=== PATIENT | female | born 1990 | race Caucasian/White ===

== ENCOUNTER 2016-08-06 13:09 | Emergency (ER) | payer OTHER ==
[~2016-08-06] VITALS: Ht 162.6 cm; Wt 112.0 kg
[2016-08-06 13:15] VITALS: Ht 162.6 cm; Wt 112.0 kg
[2016-08-06] MEDS ORDERED: ONDANSETRON (ODT) 4 MG TAB ODT STA (14:14)
--- NOTE | 2016-08-06 14:22 | ERD ---
ER Documentation Chief Complaint Date/Time DATE: 08/06/16 TIME: 14:21 Chief Complaint FEVER, CONGESTION AND DIARRHEA X 1 DAY HPI This is a 26-year-old female who presents to the emergency room for evaluation of fever, congestion and diarrhea for 1 days duration. 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 Patient did take Motrin prior to arrival. ROS All systems reviewed and are negative except as per history of present illness. Allergies Allergies: Coded Allergies: No Known Allergy (Unverified , 08/06/16) PMhx/Soc History of Surgery: No Anesthesia Reaction: No Hx Neurological Disorder: No Hx Respiratory Disorders: No Hx Cardiac Disorders: No Hx Psychiatric Problems: No Hx Miscellaneous Medical Probl: No Hx Alcohol Use: No Hx Substance Use: No Hx Tobacco Use: No Smoking Status: Never smoker Physical Exam Vitals Vital Signs Date Time Temp Pulse Resp B/P Pulse Ox O2 Delivery O2 Flow Rate FiO2 08/06/16 13:15 99.5 78 16 138/82 100 Physical Exam Const: No acute distress Head: Atraumatic Eyes: Normal Conjunctiva ENT: Normal External Ears, Nose and Mouth. Neck: Full range of motion..~ No meningismus. Resp: Clear to auscultation bilaterally Cardio: Regular rate and rhythm, no murmurs Abd: Soft, non tender, non distended. Normal bowel sounds Skin: No petechiae or rashes Back: No midline or flank tenderness Ext: No cyanosis, or edema Neur: Awake and alert Psych: Normal Mood and Affect Results 24 hrs Current Medications Medications (Trade) Dose Ordered Sig/Margarita Route PRN Reason Start Time Stop Time Status Last Admin Dose Admin Ondansetron HCl (Zofran Odt) 4 mg ONCE STAT ODT 08/06/16 14:14 08/06/16 14:15 DC Procedures/MDM This is a 26-year-old female presents to the emergency room for evaluation of nasal congestion and diarrhea for 1 days duration. The patient appeared well- hydrated on my examination. I did advise her that she likely has a viral syndrome and to stay hydrated with fluids. The patient was given Zofran here in the emergency room for mild nausea will be discharged home with a prescription for Zofran. Patient presents with straightforward URI symptoms. Clinical exam is not consistent with pneumonia, sepsis or significant bacterial disease. Patient is well hydrated, non-toxic and appropriate for outpatient, supportive care. Departure Diagnosis: Primary Impression: Upper respiratory infection Additional Impression: Nausea Condition: Stable LILI ACE DO Aug 06, 2016 14:22
[2016-08-06] MEDS ORDERED: ONDA4TAB8 PO (14:23)
== END 2016-08-06 14:41 | disposition home or self-care (01) ==
LOC: FTE 13:09
DX: J06.9 Acute upper respiratory infection, unspecified (principal); R11.0 Nausea
CPT/HCPCS: Z7502; Z7610; 99283